=== PATIENT | female | born 1960 | race Caucasian/White ===

== ENCOUNTER 2022-03-29 09:27 | Outpatient (CLI) | payer OTHER ==
--- NOTE | 2022-03-29 13:58 | XRAY Report ---
PROCEDURE: Foot 3 View LT INDICATIONS: CONTUSION OF LEFT FOOT, IN TECHNIQUE: 3 views of the foot were acquired. COMPARISON: None FINDINGS: Bones: There is an oblique fracture through the base of the third proximal phalanx with extension and involvement of the metatarsal phalangeal joint space. Softening the fracture lines Generalized decre ased osseous mineralization present. Mild arthritic changes noted at the tarsometatarsal joint Soft tissues: No tibiotalar joint effusion. Achilles tendon appears normal. IMPRESSION: Subacute intra-articular fracture involving the base of the third proximal phalanx Reviewed by: Tc Ortiz MD on 03/29/2022 12:57 PM [facility]IR Approved by: Tc Ortiz MD on 03/29/2022 12:57 PM [facility]IR Station ID: [id number]
== END 2022-03-29 09:28 | disposition home or self-care (01) ==
LOC: DI 09:27
PROVIDERS: ATTEND Registered Nurse
DX: S92.512A Displaced fracture of proximal phalanx of left lesser toe(s), initial encounter for closed fracture (principal)

== ENCOUNTER 2022-04-17 08:00 | Outpatient (CLI) | payer OTHER ==
--- NOTE | 2022-04-18 14:50 | XRAY Report ---
PROCEDURE: Foot 3 View LT INDICATIONS: LEFT FOOT PAIN TECHNIQUE: 3 views of the foot were acquired. COMPARISON: 03/29/2022. FINDINGS: Bones: Mildly displaced, intra-articular fracture of the base of the third proximal phalange is stabl e in appearance. Soft tissues: No tibiotalar joint effusion. Achilles tendon appears normal. IMPRESSION: Stable third proximal phalange fracture. Reviewed by: Bree Azar MD, PhD on 04/18/2022 2:48 PM PDT Approved by: Bree Azar MD, PhD on 04/18/2022 2:48 PM PDT Station ID: [id number]
== END 2022-04-17 23:59 | disposition home or self-care (01) ==
LOC: DI.WOS 08:00
PROVIDERS: ATTEND Physician Assistant Surgical
DX: S92.512A Displaced fracture of proximal phalanx of left lesser toe(s), initial encounter for closed fracture (principal)